=== PATIENT | female | born 1960 | race Caucasian/White ===

== ENCOUNTER → 2019-03-12 15:56 | Outpatient (CLI) | payer OTHER, SELFPAY ==
--- NOTE | 2019-03-12 16:02 | RAD_ITS ---
STUDY: X-RAY - PELVIS AND RIGHT HIP REASON FOR EXAM: Pain status post recent fall, right total hip arthroplasty 2013. TECHNIQUE: 2 views of the pelvis and hip. COMPARISON: None. FINDINGS: There is a small focus of heterotopic ossification lateral to the right total hip arthroplasty. There is enthesopathy of the right greater trochanter. Normal bilateral iliac wings, sacroiliac joints and visualized sacrum. Normal bilateral superior and inferior pubic rami. Normal pubic symphysis. Normal bilateral ischial tuberosities. There is a right total hip arthroplasty without evidence of periprosthetic fracture or dislocation. RAD/HIP, UNI W/ Pelvis 2-3 Views IMPRESSION: No demonstrated periprosthetic fracture or dislocation of the right total hip arthroplasty. Electronically Signed: Jasiel Alves MD at 10:07 EDT Tel , Service support ,
--- NOTE | 2019-03-12 16:02 | RAD_ITS ---
STUDY: X-RAY - RIGHT KNEE REASON FOR EXAM: Pain, status post recent fall. TECHNIQUE: 4 view(s) of the knee. COMPARISON: None. FINDINGS: Normal visualized distal femur. Normal visualized proximal tibia and fibula. Normal proximal tibiofibular articulation. There is mild joint space narrowing of the medial femorotibial compartment. Normal lateral femorotibial compartment. Normal patellofemoral articulation. The soft tissue structures are unremarkable. RAD/Knee 4 or More Views IMPRESSION: Mild arthrosis of the medial femorotibial compartment. Electronically Signed: Jasiel Alves MD at 9:46 EDT Tel , Service support ,
== END ==
PROVIDERS: Family Provider Family Medicine; PCP Family Medicine; Referring Provider Family Medicine; Visit Provider Family Medicine
DX: M25.551 Pain in right hip (principal); M79.604 Pain in right leg; M25.561 Pain in right knee
CPT/HCPCS: 73502; 73564

== ENCOUNTER → 2019-03-19 16:20 | Outpatient (CLI) | payer OTHER, SELFPAY ==
--- NOTE | 2019-03-19 16:26 | BD_ITS ---
STUDY: DUAL ENERGY X-RAY ABSORPTIOMETRY / DXA REASON FOR EXAM: Female, 58 years old. The patient is postmenopausal. Loss of height TECHNIQUE: Bone Mineral Density (BMD) measurements of lumbar spine and left hip were obtained. COMPARISON: None. FINDINGS: Lumbar Spine (L1-L4): g/cm2 (1.165) / T-score (-0.1) / Z-score (1.0) Findings are suggestive of normal bone density with a low fracture risk. Left Femur Total: g/cm2 (1.042) / T-score (0.3) / Z-score (1.1) Left Femoral Neck: g/cm2 (1.036) / T-score (0.0) / Z-score (1.2) BD/Dexa Bone Density Study IMPRESSION: The patient is considered normal as outlined below according to World Marv Organization (WHO) criteria with a low fracture risk. Reference Information: The T-score is the number of standard deviations above or below the standard which is normal for young adults at their peak bone mineral density. The World Health Organization (WHO) interprets the T-scores as follows: Above -1 Normal bone density Between -1 and -2.5 Osteopenia Equal to / or below -2.5 Osteoporosis As a practical clinical guideline, osteopenia may be graded as follows: Mild -1 through -1.5 Moderate -1.6 through -2.0 Severe -2.1 through -2.4 The Z-score is the number of standard deviations above or below age-matched controls. A Z-score of less than -1.5 would be considered abnormal. References: 1. NIH Osteoporosis and Related Bone Diseases http://www.osteo.org 2. International Society for Clinical Densitometry http://www.iscd.org 3. National Osteoporosis Foundation http://www.nof.org Electronically Signed: Rigo Sanchez, at 15:59 EDT , Service support ,
== END ==
PROVIDERS: Family Provider Family Medicine; PCP Family Medicine; Referring Provider Family Medicine; Visit Provider Family Medicine
DX: M85.80 Other specified disorders of bone density and structure, unspecified site (principal); Z85.3 Personal history of malignant neoplasm of breast; Z51.81 Encounter for therapeutic drug level monitoring
CPT/HCPCS: 77080

== ENCOUNTER → 2020-01-15 17:52 | Outpatient (CLI) | payer OTHER, SELFPAY | PROVIDERS: PCP Family Medicine; Referring Provider Family Medicine; Visit Provider Family Medicine | DX: Z20.828 Contact with and (suspected) exposure to other viral communicable diseases (principal); R50.9 Fever, unspecified | CPT/HCPCS: 87635; 94799; U0003 ==

== ENCOUNTER → 2021-12-26 | Outpatient (CLI) | payer OTHER, SELFPAY ==
--- NOTE | 2021-12-26 16:27 | BI_ITS ---
MAMMOGRAPHY - UNILATERAL SCREENING: LEFT BREAST REASON FOR EXAM: Female, 61 years old. Routine annual screening examination (unilateral). PERTINENT HISTORY: Personal history of breast cancer with previous right mastectomy. TECHNIQUE: Digital examination. Mediolateral oblique (MLO) and craniocaudad (CC) views of the breast were obtained, along with implant displaced views. CAD: CAD was performed on this study. COMPARISON: 12/16/2020 FINDINGS: Breast Composition: The breasts are almost entirely fatty. There are no dominant masses or suspicious calcifications. No other significant abnormalities are identified. Implant is intact and free of complication BI/SCREEN MAMM (CAD) W/SOL UNI L IMPRESSION: Negative screening mammogram. ASSESSMENT CATEGORY: BIRADS Category 2: Benign. A letter regarding these results will be sent to the patient by the facility within 30 days. FOLLOW UP RECOMMENDATION: Yearly follow up mammogram recommended. (A) [id number] Approximately 10% of breast cancers are not detected by mammography. A normal mammogram should not delay biopsy of a clinically suspicious abnormality. [id number] Electronically Signed: Kenny Brown MD at 11:53 EDT ,
== END | disposition home or self-care (01) ==
LOC: OPBI 12-27 07:01
PROVIDERS: PCP Family Medicine; Visit Provider Family Medicine
DX: Z12.31 Encounter for screening mammogram for malignant neoplasm of breast (principal); Z90.11 Acquired absence of right breast and nipple; Z85.3 Personal history of malignant neoplasm of breast
CPT/HCPCS: 77063; 77067

== ENCOUNTER → 2022-10-24 | Outpatient (CLI) | payer OTHER, SELFPAY ==
--- NOTE | 2022-10-24 14:40 | CT_ITS ---
STUDY: CT ABDOMEN AND PELVIS WITHOUT CONTRAST REASON FOR EXAM: Female, 61 years old. GENERALIZED ABD PAIN . LOW BILATERAL PELVIC PAIN ON AND OFF 4 TIMES A YEAR RADIATION DOSAGE (If Supplied By Facility): CTDIvol = ( 10.82 ) mGy, DLP = ( 510.86 ) mGycm TECHNIQUE: Transaxial images were obtained from the dome of the diaphragm to the symphysis pubis without oral contrast, and without intravenous contrast. Sagittal and coronal images were reconstructed. Individualized dose optimization techniques were used for this CT. COMPARISON: None. FINDINGS: Bilateral breast implants. The visualized lung bases are unremarkable. The visualized portions of the heart are within normal limits. Normal liver. There are multiple small gallstones. Normal spleen. Normal pancreas. Normal bilateral adrenal glands. Normal right kidney. Normal left kidney. There is a small hiatal hernia. Normal small intestine. There is diverticulosis, with thickening of the colon wall, and mild degree of pericolonic inflammation changes consistent with acute diverticulitis. The appendix is visualized and appears normal. Normal abdominal aorta. Normal inferior vena cava. Normal retroperitoneum. Normal urinary bladder. Normal abdominal wall. There are mild degenerative changes of the visualized lumbar spine. Prior right total hip replacement. CT/Abdomen/Pelvis without Cont IMPRESSION: Small gallstones. Findings suggestive of a mild degree of sigmoid diverticulitis. Electronically Signed: Rigo Sanchez MD at 15:07 EDT ,
== END | disposition home or self-care (01) ==
LOC: CT 14:39
PROVIDERS: PCP Family Medicine; Referring Provider Nurse Practitioner Family; Visit Provider Nurse Practitioner Family
DX: R10.84 Generalized abdominal pain (principal)
CPT/HCPCS: 74176

== ENCOUNTER → 2022-11-05 | Outpatient (CLI) | payer OTHER, SELFPAY ==
[2022-11-05 13:10] LABS: Free T3 3.2 pg/mL (2.18-3.98); T4 Free Direct 0.95 ng/dL (0.76-1.46); Thyroid Stim Hormone (TSH) 0.48 uIU/mL (0.358-3.74)
== END | disposition home or self-care (01) ==
LOC: BFHLAB 09:56
PROVIDERS: PCP Family Medicine; Referring Provider Family Medicine; Visit Provider Family Medicine
DX: E03.9 Hypothyroidism, unspecified (principal)
CPT/HCPCS: 36415; 84439; 84443; 84481

== ENCOUNTER → 2023-01-03 | Outpatient (CLI) | payer OTHER, SELFPAY ==
--- NOTE | 2023-01-03 15:55 | BI_ITS ---
MAMMOGRAPHY - UNILATERAL SCREENING: LEFT BREAST REASON FOR EXAM: Female, 62 years old. Routine annual screening examination (unilateral). PERTINENT HISTORY: Personal history of breast cancer. Prior right mastectomy. Mother with breast cancer. Grandmother with breast cancer. Aunt with breast cancer. TECHNIQUE: Digital unilateral breast sol (3D mammographic acquisition) in the CC and MLO projections. 2-D mediolateral oblique (MLO) and craniocaudad (CC) views of both breasts were obtained. CAD: Full Field Digital Mammography with Computer Added Detection was performed. COMPARISON: Comparison is made with prior study dated December 26, 2021. FINDINGS: Breast Composition: The breasts are almost entirely fatty. There are no dominant masses or suspicious calcifications. Stable appearance of left breast implant. No other significant abnormalities are identified. There has been no significant change since the prior study. BI/SCREEN MAMM (CAD) W/SOL UNI L IMPRESSION: Stable unilateral screening mammogram. Yearly follow-up mammogram recommended. (A) ASSESSMENT CATEGORY: BIRADS Category 2: Benign. A letter regarding these results will be sent to the patient by the facility within 30 days. Approximately 10% of breast cancers are not detected by mammography. A normal mammogram should not delay biopsy of a clinically suspicious abnormality. [id number] Electronically Signed: Rigo Sanchez MD at 8:14 EDT ,
== END | disposition home or self-care (01) ==
LOC: OPBI 15:54
PROVIDERS: PCP Family Medicine; Referring Provider Family Medicine; Visit Provider Family Medicine
DX: Z12.31 Encounter for screening mammogram for malignant neoplasm of breast (principal)
CPT/HCPCS: 77063; 77067

== ENCOUNTER 2023-03-29 14:08 | Day surgery (SDC) | payer OTHER, SELFPAY ==
[2023-03-29] MEDS: Lactated Ringers 1,000 ML 15 ML IV (14:48)
[2023-03-29 14:49] VITALS: BP 122/80; PULSE 99; RESP 18; TEMP 36.5; O2SAT 95; BMI 26.2
--- NOTE | 2023-03-29 15:18 | HP.PCM_ITS ---
History and Physical Date of Admission: 03/29/23 RONNELL HENRY, is a 62 F who presents to the office today for initial consult. PCP OV 10.24.22 with abdominal pain for a week. Last colonoscopy 10 years prior with reported normal results. Biochemical and imaging performed with concern for diverticulitis and treated with Levaquin.?Biochemical ?CBC, CMP, LFT?CT abd/pel 10.24.22?multiple small gallstones; small hiatal hernia; diverticulosis with changes of acute sigmoid diverticulitis.? OV 03.08.23 Pt here needing repeat colonoscopy. Reports she has episodes of diverticulitis that happen 1-2 times a year. Most recently treated in September. Does not have any other GI concerns. ROS Const Constitutional: No fatigue ENT ENT: No difficulty swallowing Gastro GI: No abdominal pain, belching, bloating, change in bowel habits, change in stool character, coffee ground emesis, constipation, cramping, diarrhea, heartburn, difficulty swallowing, feeling full early, excessive flatus, incontinent of stools, Vomiting blood/hematemesis, Blood in stool, loose stools, Black,tarry stools, nausea/dyspepsia, pain with swallowing, vomiting or other Musc Musculoskeletal: No joint pain Skin Skin: No yellowing of the eye or itchy eyes Psych Psychiatric: No anxiety and No depression Endo Endocrine: No fatigue Aller/Imm Allergy/Immunologic: No itchy eyes Diogo/Lymp Hematologic/Lymphatic: No easy bleeding or easy bruising Exam Const General: cooperative and comfortable Nutritional Appearance: average body habitus and well nourished [facility] Head: normal to inspection Ears: hearing grossly normal bilaterally Nose: external nose normal Face and sinus: normal facial exam Mouth: oral mucosae normal Throat: posterior oropharynx normal Eyes General: appearance normal, both eyes and all related structures Neck Neck: normal visual inspection Chest Chest palpation & inspection: normal inspection of the chest and normal palpation of entire chest wall Resp Effort & Inspection: normal respiratory effort Auscultation: Bilateral: Clear to Auscultation Cardio Palpation: normal PMI Rate: regular rate Rhythm: regular rhythm GI Inspection: normal to inspection Auscultation: normal bowel sounds Percussion: normal to percussion Palpation: no hepatosplenomegaly Skin General: no rashes or lesions noted Neuro General: patient alert Extrem General: normal to inspection Psych Affect: normal affect Quality Reporting Tobacco Screening ([facility] 138) Smoking Status: Never smoker Assessment and Plan Assessment and Plan (1) Screening for colon cancer: Status: Acute Plan: 62-year-old with past medical history of diverticulitis who had a normal colonoscopy approximately 13 years ago. She does not have any abdominal pain at this time. She does not have any nausea, vomiting or diarrhea. She did require antibiotics for mild diverticulitis. She has no constipation or any sequela from her diverticular event. She will undergo screening colonoscopy because been 13 years since she had her last one. She was explained alternatives, risk, benefits including outstanding bleeding, infection, sepsis, perforation, need for emergent surgery and . She will have an ASA of 2. I have examined the patient and the H&P has been reviewed. There are no clinical changes since date of exam.
[2023-03-29 16:45] VITALS: BP 122/80; BP 88/54; BP 90/54; PULSE 80; PULSE 85; RESP 16; TEMP 36.3; O2SAT 94; O2SAT 95
--- NOTE | 2023-03-29 16:46 | OP.CCLET_ITS ---
03/29/2023 Cailin Soto [address] [place] [address] Re : Colonoscopy procedure for Jennifer Harkins Dear Dr. Soto This procedure was performed on Wednesday, March 29, 2023. My impressions and recommendations are as follows: Impressions : - Stricture in the sigmoid colon. - Diverticulosis in the recto-sigmoid colon and in the sigmoid colon. - Rectal prolapse. - The examination was otherwise normal. - No specimens collected. Recommendations : - Discharge patient to home. - Resume previous diet. - Continue present medications. - Repeat colonoscopy in 10 years for screening purposes. My findings are described in the full procedure note, which is enclosed. If I can be of further assistance, please feel free to contact me at . Sincerely, Florentino Friend, 03/29/2023 4:46:33 PM This report has been signed electronically.
--- NOTE | 2023-03-29 16:46 | OP.COLON_ITS ---
Patient Name: Jennifer Harkins Procedure Date: 03/29/2023 4:06 PM Date of : 1960 Age: 62 Procedure: Colonoscopy Indications: Screening for colorectal malignant neoplasm Providers: DO Alejandra Perez MD: Cailin Soto Medicines: Monitored Anesthesia Care Patient Profile: This is a 62 year old female. Refer to note in patient chart for documentation of history and physical. Last Colonoscopy: more than 10 years ago. Complications: No immediate complications. Procedure: Pre-Anesthesia Assessment: - Prior to the procedure, a History and Physical was performed, and patient medications and allergies were reviewed. The risks and benefits of the procedure and the sedation options and risks were discussed with the patient. All questions were answered and informed consent was obtained. Patient identification and proposed procedure were verified by the physician. Mental Status Examination: normal. Prophylactic Antibiotics: The patient does not require prophylactic antibiotics. Prior Anticoagulants: The patient has taken no anticoagulant or antiplatelet agents. After reviewing the risks and benefits, the patient was deemed in satisfactory condition to undergo the procedure. The anesthesia plan was to use monitored anesthesia care (MAC). Immediately prior to administration of medications, the patient was re-assessed for adequacy to receive sedatives. The heart rate, respiratory rate, oxygen saturations, blood pressure, adequacy of pulmonary ventilation, and response to care were monitored throughout the procedure. The physical status of the patient was re-assessed after the procedure. After I obtained informed consent, the scope was passed under direct vision. Throughout the procedure, the patient's blood pressure, pulse, and oxygen saturations were monitored continuously. The colonoscope was introduced through the anus and advanced to the terminal ileum. The colonoscopy was performed without difficulty. The patient tolerated the procedure well. The quality of the bowel preparation was good. The terminal ileum, ileocecal valve, appendiceal orifice, and rectum were photographed. Scope In: 4:20:50 PM Scope Withdrawal Time 0 hours 5 minutes 34 seconds Scope Out: 4:41:04 PM Total Procedure Duration Time 0 hours 20 minutes 14 seconds Findings: The perianal and digital rectal examinations were normal. A benign-appearing, intrinsic severe stenosis measuring 3 cm (in length) x 7 mm (inner diameter) was found in the sigmoid colon and was traversed. Multiple small and large-mouthed diverticula were found in the recto-sigmoid colon and sigmoid colon. Mild rectal prolapse was present. Therefore retroflexion was not performed in the rectum. The exam was otherwise without abnormality. Impression: - Stricture in the sigmoid colon. - Diverticulosis in the recto-sigmoid colon and in the sigmoid colon. - Rectal prolapse. - The examination was otherwise normal. - No specimens collected. Recommendation: - Discharge patient to home. - Resume previous diet. - Continue present medications. - Repeat colonoscopy in 10 years for screening purposes. Procedure Code(s): --- Professional --- G0121, Colorectal cancer screening; colonoscopy on individual not meeting criteria for high risk CPT copyright 2021 [employer]. All rights reserved. The codes documented in this report are preliminary and upon crematorium operator review may be revised to meet current compliance requirements. Florentino Mayen DO 03/29/2023 4:46:33 PM This report has been signed electronically. Number of Addenda: 0 Note Initiated On: 03/29/2023 4:06 PM
[2023-03-29 16:50] VITALS: BP 122/80; BP 90/5; PULSE 85; RESP 16; O2SAT 94
[2023-03-29 16:55] VITALS: BP 122/80; BP 98/65; PULSE 80; RESP 16; O2SAT 94
[2023-03-29 17:00] VITALS: BP 104/63; BP 122/80; PULSE 78; RESP 16; TEMP 36.3; O2SAT 97
[2023-03-29 17:23] VITALS: BP 122/80
== END 2023-03-29 17:45 | disposition home or self-care (01) ==
LOC: EN 14:09 → AC 14:11
PROVIDERS: PCP Family Medicine; Referring Provider Family Medicine; Visit Provider Internal Medicine Gastroenterology
PROC: 0DJD8ZZ Inspection of Lower Intestinal Tract, Via Natural or Artificial Opening Endoscopic (ICD-10-PCS; CPT 45378; principal; 2023-03-29 15:25)
DX: Z12.11 Encounter for screening for malignant neoplasm of colon (principal); K56.609 Unspecified intestinal obstruction, unspecified as to partial versus complete obstruction; K57.30 Diverticulosis of large intestine without perforation or abscess without bleeding; K62.3 Rectal prolapse; Z79.82 Long term (current) use of aspirin; Z79.890 Hormone replacement therapy; E03.9 Hypothyroidism, unspecified
CPT/HCPCS: 45378; J7120

== ENCOUNTER → 2023-04-24 | Outpatient (CLI) | payer OTHER, SELFPAY ==
[2023-04-29 18:07] LABS: HPV APTIMA, High Risk Negative (Negative)
== END | disposition home or self-care (01) ==
LOC: LABSPEC 15:43
PROVIDERS: PCP Family Medicine; Referring Provider Nurse Practitioner Women's Health; Visit Provider Nurse Practitioner Women's Health
DX: Z12.4 Encounter for screening for malignant neoplasm of cervix (principal)
CPT/HCPCS: 87624; 88175; G0145

== ENCOUNTER → 2024-04-14 | Outpatient (CLI) | payer OTHER, SELFPAY ==
--- NOTE | 2024-04-14 16:13 | BI_ITS ---
MAMMOGRAPHY - UNILATERAL SCREENING: LEFT BREAST REASON FOR EXAM: Female, 63 years old. Routine annual screening examination (unilateral). PERTINENT HISTORY: Personal history of breast cancer. Prior right mastectomy. Right breast implant. Mother with breast cancer. Grandmother with breast cancer. Aunt with breast cancer. TECHNIQUE: Digital unilateral breast sol (3D mammographic acquisition) in the CC and MLO projections. 2-D mediolateral oblique (MLO) and craniocaudad (CC) views of both breasts were obtained. CAD: Full Field Digital Mammography with Computer Added Detection was performed. COMPARISON: Comparison is made with prior study January 03, 2023 and December 26, 2021. FINDINGS: Breast Composition: There are scattered areas of fibroglandular density. There are no dominant masses or suspicious calcifications. Stable appearance of the left breast implant. No other significant abnormalities are identified. There has been no significant change since the prior study. BI/SCREEN MAMM (CAD) W/SOL UNI L IMPRESSION: Stable unilateral screening mammogram. Yearly follow-up mammogram recommended. (A) ASSESSMENT CATEGORY: BIRADS Category 2: Benign. A letter regarding these results will be sent to the patient by the facility within 30 days. Approximately 10% of breast cancers are not detected by mammography. A normal mammogram should not delay biopsy of a clinically suspicious abnormality. [id number] Electronically Signed: Riog Sanchez MD at 8:29 EST ,
== END | disposition home or self-care (01) ==
LOC: OPBI 16:11
PROVIDERS: PCP Family Medicine; Referring Provider Family Medicine; Visit Provider Family Medicine
DX: Z12.31 Encounter for screening mammogram for malignant neoplasm of breast (principal)
CPT/HCPCS: 77063; 77067

== ENCOUNTER 2024-10-31 12:00 | Outpatient (CLI) | payer OTHER, SELFPAY ==
--- NOTE | 2024-10-31 | TOBX_PTH ---
PATIENT: RONNELL HENRY [facility] U#:[id number] AGE/SX: 63/F ROOM: RE10/31/[address]: Dr. Robin Vizcaino MD : 1960 BED: DIS: 10/31/2024 SPEC #: [id number] RECD: 10/31/24 12:09 STATUS: RHIANNON REParminder #: [id number] TATUM: 10/31/24 00:[address]: Robin Vizcaino DEPT: SURGICAL PATHOLOGY RECD BY: Manju Christian ENTERED: 11/02/24 07:17 SP TYPE: TONGUE BX SANJANA DR: Dr. Cailin Soto, DO Tissues: A - Tongue, NOS Procedures: Surgery Specimen Level IV HEADER OPERATION: Permanent pathology PRE-OP DIAGNOSIS: Left tongue neoplasm TISSUE SUBMITTED: A- Left tongue neoplasm MICROSCOPIC DIAGNOSIS A. Left tongue, excision: * Sessile polyp with a benign keratotic squamous epithelium, suggesting a lingual papillae MICROSCOPIC DESCRIPTION Slides are reviewed. GROSS DESCRIPTION A. Received in formalin labeled with the patient's name and date of . Designated as tongue is a 0.5 x 0.4 x 0.3 cm casey-white, firm and irregular portion of mucosa. The focally cauterized resection margin is inked black. Bisected and entirely submitted in [address] [facility] [place] [facility] 11/03/2024 CPT:34968
--- OUTSIDE RECORDS SUMMARY | 2024-10-31 12:07 | XMS RPT_ITS | CCD ---
Author Organization [facility] Care Team Providers Care Camp Advisor Name Role Phone Dr. Cailin Soto Primary Care Provider [phone] Charles, Dr. Simeon Referring Provider [phone] Friend, Dr. Good Attending Provider Friend, Dr. Good Other Provider [phone] Cailin Soto Primary Care Provider [phone] Charles, Dr. Simeon Referring Provider Friend, Dr. Good Attending Provider Friend, Dr. Good Other Provider Isaac KAYAKING INSTRUCTOR, GUILLE-Calderon Ragsdale Attending Provider Malys, Cailin Referring Unavailable Dossi, Kia Attending Unavailable Malys, Cailin Primary Care Unavailable Dossi, Kia Attending Unavailable Malys, Cailin Primary Care Unavailable Malys, Cailin Referring Unavailable Malys, Cailin Primary Care Unavailable Dossi, Kia Attending Unavailable Malys, Cailin Attending Unavailable Malys, Cailin Referring Unavailable Malys, Cailin Primary Care Unavailable Malys, Cailin Referring Unavailable Malys, Cailin Primary Care Unavailable Dossi, Kia Attending Unavailable Allergies Allergy Classification Reported Allergen(s) Allergy Type Date of Onset Reaction(s) Facility (4 sources) Meperidine Drug Allergy 11-07-2022 Rash [facility] (1 source) Meperidine Drug Allergy 01-01-2024 [facility] Repository Medications Current Medications Medication Drug Class(es) Dates Sig (Normalized) Sig (Original) anastrozole 1 mg oral tablet (2 sources) Aromatase Inhibitor Start: 10-31-2022 take 1 tablet by mouth once daily Anastrozole (Arimidex) 1 mg tablet Active 1 MG PO DAILY October 31, 2022 12:00am aspirin 81 mg delayed release oral tablet (4 sources) Platelet Aggregation Inhibitor, Nonsteroidal Anti-inflammatory Drug Start: 10-31-2022 take 1 tablet by mouth once daily Aspirin (Adult Aspirin Regimen) 81 mg tablet,delayed release (DR/EC) Active 81 MG PO DAILY October 30, 2022 11:00pm citalopram 20 mg oral tablet (4 sources) Serotonin Reuptake Inhibitor Start: 10-31-2022 take 1 tablet by mouth once daily Citalopram (Celexa) 20 mg tablet Active 20 MG PO DAILY October 30, 2022 11:00pm thyroid (jail) 15 mg oral tablet (4 sources) Start: 10-31-2022 take 1 tablet by mouth once daily Thyroid (Pork) ([place] Thyroid) 15 mg tablet Active 15 MG PO DAILY October 30, 2022 11:00pm Problems Active Problems Problem Classification Problem Date Documented Date Episodic/Chronic Cancer of breast (2 sources) History of malignant neoplasm of breast; Translations: [Personal history of malignant neoplasm of breast] 04-24-2023 Episodic Other screening for suspected conditions (not mental disorders or infectious disease) (5 sources) Patient encounter status; Translations: [Encounter for screening for malignant neoplasm of colon] Onset: 05-11-2024 03-08-2023 Episodic Spondylosis; intervertebral disc disorders; other back problems (1 source) Other intervertebral disc degeneration, lumbosacral region; Translations: [Other intervertebral disc degeneration, lumbosacral region] Onset: 01-08-2024 Chronic Unclassified (1 source) Low back pain, unspecified; Translations: [Low back pain, unspecified] Onset: 01-08-2024 Past or Other Problems Problem Classification Problem Date Documented Da te Episodic/Chronic Other bone disease and musculoskeletal deformities (1 source) Segmental and somatic dysfunction of lumbar region; Translations: [Segmental and somatic dysfunction of lumbar region] Onset: 01-08-2024 Episodic Other bone disease and musculoskeletal deformities (1 source) Segmental and somatic dysfunction of pelvic region; Translations: [Segmental and somatic dysfunction of pelvic region] Onset: 01-08-2024 Episodic Spondylosis; intervertebral disc disorders; other back problems (1 source) Dorsalgia, unspecified; Translations: [Dorsalgia, unspecified] Onset: 12-10-2023 Episodic Results Test Name Value Interpretation Reference Range Facility SCREEN MAMM (CAD) W/SOL UNI David 04-14-2024 SCREEN MAMM (CAD) W/SOL UNI L [facility] Services [address] [place] [address] SCREEN MAMM (CAD) W/SOL UNI L MR#: [id number] Acct: [id number] Name: RONNELL HENRY Rep #: [id number] : 1960 F 63 From: Rigo alvarenga MD PCP: Dr. Cailin Soto DO Status: [facility] Study: SCREEN MAMM (CAD) W/SOL UNI L Date of Exam: 06/14/23 Exam# [id number] Ordering Dr: Cailin Soto DO [id number] MAMMOGRAPHY - UNILATERAL SCREENING: LEFT BREAST REASON FOR EXAM: Female, 63 years old. Routine annual screening examination (unilateral). PERTINENT HISTORY: Personal history of breast cancer. Prior right mastectomy. Right breast implant. Mother with breast cancer. Grandmother with breast cancer. Aunt with breast cancer. TECHNIQUE: Digital unilateral breast sol (3D mammographic acquisition) in the CC and MLO projections. 2-D mediolateral oblique (MLO) and craniocaudad (CC) views of both breasts were obtained. CAD: Full Field Digital Mammography with Computer Added Detection was performed. COMPARISON: Comparison is made with prior study January 03, 2023 and December 26, 2021. FINDINGS: Breast Composition: There are scattered areas of fibroglandular density. There are no dominant masses or suspicious calcifications. Stable appearance of the left breast implant. No other significant abnormalities are identified. There has been no significant change since the prior study. BI/SCREEN MAMM (CAD) W/SOL UNI L IMPRESSION: Stable unilateral screening mammogram. Yearly follow-up mammogram recommended. (A) ASSESSMENT CATEGORY: BIRADS Category 2: Benign. A letter regarding these results will be sent to the patient by the facility within 30 days. Approximately 10% of breast cancers are not detected by mammography. A normal mammogram should not delay biopsy of a clinically suspicious abnormality. [id number] Electronically Signed: Rigo Sanchez MD at 8:29 EST Reading Location ID and State: [address] [place] [address] , Service support , CC: Dr. 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 Normal [facility] Chiropractic Reporton 2023 Chiropractic Report [facility] [place] [address] OFFICE VISIT Date of Service: 01/01/24 MR#: [id number] Acct: [id number] Name: RONNELL HENRY Rep #: [id number] : 1960 Provider: YOSVANY Rodriguez Age/Sex: 63/F Location: [facility] Status: Signed Intake Vital Signs 12/02/23 15:17 Height 5 ft 7 in Weight: 163 lb 7 oz BMI 25.6 Blood Pressure Location Lt brachial Position Sitting Intake Visit Reasons: Back pain Chief Complaint: Back pain Allergies meperidine (From Demerol) Allergy (Intermediate, Verified 01/01/24 11:10) Rash Medications ???Medication ???Instructions ???Recorded ???Confirmed ???Type aspirin 81 mg tablet,delayed 81 mg PO DAILY 10/31/22 01/01/24 History release (Adult Aspirin Regimen) citalopram 20 mg tablet (Celexa) 20 mg PO DAILY 10/31/22 01/01/24 History thyroid (pork) 15 mg tablet 15 mg PO DAILY 10/31/22 01/01/24 History ([place] Thyroid) [facility] Medical History Osteoarthritis Post-menopausal Cancer Thyroid disease Non-smoker Breast cancer, right Abdominal pain Acute diverticulitis Surgical History S/P cataract surgery History of wisdom tooth extraction History of tonsillectomy History of hip replacement H/O right mastectomy Family History Mother Breast cancer Grandmother Breast cancer paternal Aunt Breast cancer paternal Father Cancer Lung Social History household members: spouse housing: house number of children: 3 current occupational status: employed current occupation: [employer] Smoking Status: Never smoker alcohol intake: current alcohol intake frequency: holidays/special occasions only substance use type: does not use seatbelt use: always do you feel safe at home: Yes additional social history: -[employer]ika[employer] HPI Back pain Chief Complaint: low back pain Visit Number: 2 Details: Ronnell Henry a 62 year old female presents for follow-up on low back pain. She states today that her last adjustment was very helpful and returns today with minimal pain. She hasn't had her back lock up since last visit. She denies numbness, tingling or radicular symptoms. She has tried heat, ice, stretching and muscle relaxers with no relief. She has seen a chiropractor in the past and reports this was helpful. Onset: 10/25/21 Location: low back Duration: intermittent Aggravating or associated factors: weeding, working in flower beds, bending Relieving factors: chiro Treatment: heat, ice, muscle relaxers Pain Quality: aching and dull Exam Musc General: Yes normal posture, normal gait and joint tenderness; No muscle weakness or decreased range of motion Thoracic/Lumber: Yes thoracic and lumbar spine normal to inspection, Yes paraspinal tenderness (improving) bilaterally in the upper lumbar, in the mid lumbar and in the lower lumbar, No thoraco- lumbar ROM limited, Yes thoraco-lumbar spasm on the right greater than left (lumbar paraspinal L1- L5) and on the left greater than right (glute medius) and Yes misalignment L1, L2, L3, L4, L5, RIL and LIL Sacroiliac joints: on the right tender to palpation Neuro General: patient alert, patient awake, patient oriented x3, normal light touch, pain and propioception and no focal motor deficits Cranial Nerves: CN's II-XI intact bilaterally Cognition: normal cognition Speech: speech normal Gait: normal gait Motor: muscle tone normal throughout Sensory Exam: no sensory deficits noted Ortho Test CERVICAL THORACIC LUMBAR Kemps: Negative Valsalvas: Negative (+when pt is acute) SLR: Negative Iliac Compression: Negative Office Procedures Procedures - Chiropractic Procedures Manipulation: Lumbar L3 and Pelvis LIL Manipulation: 1-2 regions Patient Response: positive Assessment and Plan Assessment and Plan (1) Back pain: Status: Acute Qualifiers: Back pain laterality: bilateral Back pain location: low back pain Chronicity: acute Sciatica presence: without sciatica Qualified Code(s): M54.50 - Low back pain, unspecified (2) Segmental and somatic dysfunction of lumbar region: Status: Acute (3) Segmental and somatic dysfunction of pelvic region: Status: Acute (4) DDD (degenerative disc disease), lumbosacral: Status: Chronic Comment: mild L3-S1 Orders: Orders Chiropractic Treatments 01/01/24 M51.37 - Other intervertebral disc degeneration, lumbosacral region, M99.03 - Segmental and somatic dysfunction of lumbar region, M99.05 - Segmental and somatic dysfunction of pelvic region Plan Patient was treated without (more content not included)... Normal [facility] Chiropractic Reporton 2023 Chiropractic Report [facility] [address] [place] [address] OFFICE VISIT Date of Service: 12/02/23 MR#: [id number] Acct: [id number] Name: RONNELL HENRY Rep #: [id number] : 1960 Provider: YOSVANY Rodriguez Age/Sex: 62/F [place] [facility] [place]: Signed Intake Vital Signs 04/24/23 15:00 12/02/23 15:17 Height 5 ft 7 in 5 ft 7 in Weight: 163 lb 7 oz BMI 25.6 Blood Pressure Location Lt brachial Position Sitting Intake Visit Reasons: est care Chief Complaint: Back pain Is patient in pain?: No Allergies meperidine (From Demerol) Allergy (Intermediate, Verified 12/02/23 15:18) Rash Medications ???Medication ???Instructions ???Recorded ???Confirmed ???Type aspirin 81 mg tablet,delayed 81 mg PO DAILY 10/31/22 12/02/23 History release (Adult Aspirin Regimen) citalopram 20 mg tablet (Celexa) 20 mg PO DAILY 10/31/22 12/02/23 History thyroid (pork) 15 mg tablet 15 mg PO DAILY 10/31/22 12/02/23 History ([place] Thyroid) [facility] Medical History (Updated 12/02/23 @ 16:[address] Kia Amaya, YOSVANY) Osteoarthritis Post-menopausal Cancer Thyroid disease Non-smoker Breast cancer, right Abdominal pain Acute diverticulitis Surgical History S/P cataract surgery History of wisdom tooth extraction History of tonsillectomy History of hip replacement H/O right mastectomy Family History Mother Breast cancer Grandmother Breast cancer paternal Aunt Breast cancer paternal Father Cancer Lung Social History household members: spouse housing: house number of children: 3 current occupational status: employed current occupation: [employer] Smoking Status: Never smoker alcohol intake: current alcohol intake frequency: holidays/special occasions only substance use type: does not use seatbelt use: always do you feel safe at home: Yes additional social history: -Carla Palomares of [employer] [employer] Chief Complaint: Back pain Visit Number: 1 Details: Ronnell Henry a 62 year old female presents for initial evaluation of back pain. She states that a few times per year she has episodes where her low back locks up. When she has these episodes she is unable to bend and has a difficult time walking or moving. Before these episodes she can be doing yard work or she moves and bends the wrong way and it happens. The most recent episode was over a week ago when she was weeding the flower beds. She felt a spasms start in her low back then it locked up. She states the pain is equal bilaterally when this happens. She denies numbness, tingling or radicular symptoms. The pain is 10/10 with these episodes. She had a right hip replacement but denies any pain in her hips. She has tried heat, ice, stretching and muscle relaxers with no relief. She has seen a chiropractor in the past and reports this was helpful. Onset: 10/25/21 Location: Low back Duration: intermittent Aggravating or associated factors: weeding, working in flower beds, bending Treatment: heat, ice, muscle relaxers Pain Quality: aching and dull Exam Musc General: Yes normal posture, normal gait and joint tenderness; No muscle weakness or decreased range of motion Thoracic/Lumber: Yes thoracic and lumbar spine normal to inspection, Yes Lasegue's sign negative, Yes straight leg raise negative bilaterally, No pain with thoraco-lumbar ROM, Yes paraspinal tenderness bilaterally in the upper lumbar, in the mid lumbar and in the lower lumbar, No thoraco- lumbar ROM limited, Yes thoraco-lumbar spasm on the right greater than left (lumbar paraspinal L1- L5) and on the left greater than right (glute medius) and Yes misalignment L1, L2, L3, L4, L5, RIL and LIL Sacroiliac joints: on the right tender to palpation Neuro General: patient alert, patient awake, patient oriented x3, normal light touch, pain and propioception and no focal motor deficits Cranial Nerves: CN's II-XI intact bilaterally Cognition: normal cognition Speech: speech normal Gait: normal gait Motor: muscle tone normal throughout Sensory Exam: no sensory deficits noted Ortho Test CERVICAL THORACIC LUMBAR Kemps: Negative Valsalvas: Negative (+when pt is acute) SLR: Negative Iliac Compression: Negative Office Procedures Procedures - Chiropractic Procedures Manipulation: Lumbar L3 and Pelvis LIL Manipulation: 1-2 regions Traction, Mechanical: Yes Patient Response: positive Assessment and Plan Assessment and Plan (1) Back pain: Status: Acute Qualifiers: Back pain laterality: bilateral Back pain location: low back pain Chronicity: acute Sciatica presence: without (more content not included)... Normal [facility] Radiology Reporton 4 Radiology Report [place] [address] [place] [address] 12/02/23 1557 MR#: [id number] Acct: [id number] Name: RONNELL HENRY Rep #: [id number] : 1960 62 From: Kia Amaya D.C. PCP: Dr. Cailin Soto, DO Status:DEP AMB [place] [facility] [place] Impression Impression: Patients Name: RONNELL HENRY : 1960 Views Submitted: a routine lumbosacral series was accomplished on 12/02/23 at [facility]. The lumbar series reveals in the AP view a mild left rotatory curvature of the lumbar spine, with right spinous process rotation from T11 to S1. There is a 12.4mm leg length inequality on the right There is anterior rotation of the left manfred on sacrum. Sacrum is inferior on the right. It appears that there is a right kidney stone. Evidence of R hip replacement. The lateral lumbar view demonstrates a normal lordotic lumbar spine. The disc spaces are mildly reduced from L2-S1. Oblique views are normal, no indication of fracture or instability. IMPRESSION: 1. Mild lumbar DDD. 2. Right kidney stone. Dictated by Performing Provider: Kia Amaya Coding Level of Care Code Spine Lumbarsacral 4 views 12/03/23 0822 Date Kia Amaya D.C. Signed Normal [facility] Cervical or vagninal specime n microscopic examination by cytology stain (reported asOrdered By: Melyssa Gray on 04-24-2023 Cytology report Cyto stain Doc (Cvx/Vag) Comment . [facility] Comment on above: The Pap smear is a s creening test designed to aid in thedetection of premalignant and malignant conditions of theuterine cervix. It is not a diagnostic procedure andshould not be used as the sole means of detecting cervicalcancer. Both false-positive and false-negative reports dooccur. Detection in cervical specim en of any of human papilloma virus (HPV) 16, 18, 31, 33,Ordered By: Melyssa Gray on 04-24-2023 HPV 16+18+31+33+35+39+45+5 1+52+56+58+59+66+68 DNA Probe+sig amp Ql (Cvx) Negative Negative [facility] Comment on above: This nucleic acid am plification test detects fourteen high- risk HPV types (16,18,31,33,35,39,45,51,52,56,58,59,66,68)without differentiation. Laboratory - CytologyOrdered By: Melyssa Gray on 04-24-2023 Gas Operations Superintendent Cyto stain Nom (Cvx/Vag) [ID] Comment . [facility] Comment on above: Luzmaria Grant, Cyto technologist (ASCP) Laboratory - Miscellaneous t estsOrdered By: Melyssa Gray on 04-24-2023 Service comment (Unsp spec) [Interp] Comment . [facility] Comment on above: This liquid based Th inPrep(R) pap test was screened withthe use of an image guided system. Service comment (Unsp spec) [Interp] . . [facility] Liquid-based cerv Pap + CT/G C by SARAH w reflex to high-risk HPV for ASCUSOrdered By: Melyssa Gray on 04-24-2023 Cytology report Cyto stain.thin prep Doc (Cvx/Vag) Comment . [facility] Comment on above: Criteria not met, HP V Genotype not performed.Performed at: [facility] [id number] Director: Taniya Nance MD, Phone: [phone] at: = - [facility] [id number] Director: Taniya Nance MD, Phone: [phone] No Panel InformationOrdered By: Melyssa Gray on 04-24-2023 Pathology report final diagnosis Narrative Comment . [facility] Comment on above: NEGATIVE FOR INTRAEP ITHELIAL LESION OR MALIGNANCY. Laboratory - Chemistry and C hemistry - challengeOrdered By: Dr. Soto on 11-05-2022 Free T4 [Mass/Vol] 0.95 ng/dL 0.76-1.46 [facility] No Panel InformationOrdered By: Dr. Soto on 11-05-2022 Free Triiodothyronine (T3) pg/dL 3.2 pg/mL 2.18-3.98 [facility] Thyroid Stimulating Hormone (TSH) 0.48 uIU/mL 0.358-3.74 [facility] Clinic Note - Heme Onc Sched cathyamanda 08-30-2021 Clinic Note - Heme Onc Scheduling Retrieve Patient Instructions: Patient Instructions: Patient Instructions: RetrievePatient Instructions Instructions It was a pleasure seeing you today. Thank you for allowing me to take part in your care. Please contact our office if you have any questions or concerns going forward. End of Visit Documentation: Clinic Location/Phone Number: Clinic Location/Phone Number: [facility] End Of Visit MU Report Item: Visit Summary given or mailed to patientyes Mailed to patient Electronic Signatures: Leia Hawkins (SEC) (Signed 30-Aug-2021 11:26) Authored: Retrieve Patient Instructions, End of Visit Documentation Last Updated: 30-Aug-2021 11:26 by Leia Hawkisn (SEC) [facility] Clinic Note - Heme Oncon Clinic Note - Heme Onc Patient Visit Information: Visit Type: Follow Up Visit Cancer History: Breast Cancer AJCC Edition: 7th, Diagnosis Date: 12-Jan-2009, Stage IIB, T2 N1 M0 Treatment History: 1. In December 2008, right invasive ductal carcinoma, Chamberlain-Rodriguez grade 3, ER and SC both positive at 95%, and HER-2 negative by FISH. Tumor measured 2 cm with 1 of 4 sentinel lymph nodes positive for disease. She was treated with right mastectomy and implant reconstruction, on February 2009. Stage II (T1c N1A M0). 2. Dose-dense Adriamycin and Cytoxan initiated in April 2009 followed by dose-dense Taxol completed on August 03, 2009. 3. Right silicone implant reconstruction completed 08/[address] Christensen. Left breast silicone implant placed around 2002 to 2003. 4. She joined the SO307 randomized clinical trial of bisphosphonate in June 2009, and was randomized to receive Zometa with the first treatment given June 29, 2009, which was complicated by fever. No further fever reactions thereafter. 5. Radiation therapy to the right breast and axilla completed on November 09, 2009. 6. Tamoxifen initiated on 2009. The patient was switched from tamoxifen to Arimidex on July 17, 2011. Of note, the patient had not had her periods prior to the start of her chemotherapy and was found to be in menopause via laboratory testing. 6. Genetic testing for BRCA1 and BRCA2 were negative. History of Present Illness: ID Statement: RONNELL HENRY is a 60 year old Female Chief Complaint: Urgent Visit Interval History: Anne presents for urgent visit. She called last week as she was having pain in her right reconstructed breast and was concerned as this was new. She states that the breast pain has bothered her for 2 weeks though yesterday and today it is much improved. Anne denies any recent illness, no fever, nasal congestion, or body aches. She does feel that the reconstructed breast feels tight as well. Review of Systems: Review of Systems: 13 point review of system completed - see HPI System ReviewAll other systems have been reviewed and are negative for complaint. Allergies and Intolerances: Allergies: Demerol HCl: Drug, Anaphylaxis, Active Outpatient Medication Profile: * Patient Currently Takes Medications as of 29-Aug-2021 10:02 documented in Structured Notes CITALOPRAM 20 MG ORAL TABLET: Last Dose Taken: , TAKE TABLET BY MOUTH ALTERNATE 1 TABLET EVERY OTHER DAY (20MG) WITH 2 TABLETS EVERY OTHER DAY (40MG), Start Date: 17-Aug-2016 Vitamin D3 2000 intl units oral capsule: Last Dose Taken: , 1 cap(s) orally once a day Aspir 81 81 mg oral delayed release tablet: Last Dose Taken: , 1 tab(s) orally once a day calcium carbonate 600 mg oral tablet: Last Dose Taken: , 2 tab(s) orally once a day [place] Thyroid 30 mg oral tablet: Last Dose Taken: Medical History: Screening mammogram, encounter for: ICD-10: Z12.31, Status: Active Aromatase inhibitor use: ICD-10: Z79.811, Status: Active History of malignant neoplasm of breast: ICD-10: Z85.3, Status: Active Breast cancer: ICD-10: C50.919, Status: Active Family History: No Family History items are recorded in the problem list. Social History: Social Substance History: Smoking Statusnever smoker Alcohol Useunknown Drug Usedenies Performance: ECOG Performance Status: 0 Fully Active Vitals and Measurements: Vitals: Temp: 36.5 HR: 71 RR: 18 BP: 113/71 SPO2%: NA Measurements: HT(cm): 169.2 WT(kg): 80.3 BSA: 1.94 BMI: 28 Physical Exam: Constitutional: Well developed, alert/oriented x3, no distress, cooperative Eyes: clear sclera ENMT: mucous membranes moist, no apparent lesions Head/Neck: Neck supple, no bruits Respiratory/Thorax: Patent airways, normal breath sounds with good chest expansion Cardiovascular: Regular rate and rhythm, no murmurs, 2+ equal pulses of the extremities, Gastrointestinal: Nondistended, soft, non-tender, no masses palpable, no organomegaly Musculoskeletal: ROM intact, no joint swelling, normal strength Extremities: normal extremities, no edema, cyanosis, contusions or wounds Neurological: alert and oriented x3, normal strength Breast: Left mastectomy with silicone implant reconstruction is without masses, nodules, skin changes. There is slight contraction of the reconstructed breast. Right breast without masses, nodules, skin changes, discharge, + for implant augmentation. Lymphatic: No significant lymphadenopathy Psychological: Appropriate mood and behavior Skin: Warm and dry, no lesions, no rashes Cancer: Breast Cancer Screeningdone Breast Cancer Screening Methodmammography Mastectomy Doneright Breast Cancer Typeestrogen positive, progesterone positive Lab Results: Results CBC date/time WBC HGB HCT PLT Neut 01-Sep-2014 16:00 5.4 12.5 37.9 227 2.90 BMP date/time NA K CL CO2 BUN CREAT 01-Sep-2014 16:00 141 (more content not included)... Normal [facility] Clinic Note - Intakeon 08-29 Clinic Note - Intake Patient Visit Information: Visit TypeFollow Up Visit Source of Informationpatient Vital Signs: Temp (degrees C)36.5 degrees C Heart Rate (beats/min)71 beats per minute Respiration (breaths/min)18 breath per minute BP Systolic (mm Hg)113 mmHg BP Diastolic (mm Hg)71 mmHg BP Mean (mm Hg)85 mmHg Height in cm169.2 centimeter(s) Weight in kg80.3 kilogram(s) BMI (kg/m2)28 kg/M2 BSA (m2)1.94 M2 Last 3 Weights & HeightsDate: Weight/Scale Type:Height: 16-Dec-2020 14:5079 kg / standing zlypg129.1 cm Pain Screening: Patient States Painno (0) Web Press Operator Helper Offset for intimate exam offered to patient: Patient hasdeclined Allergies: Demerol HCl: Drug, Anaphylaxis, Active Outpatient Medication Profile: * Patient Currently Takes Medications as of 29-Aug-2021 10:02 documented in Structured Notes CITALOPRAM 20 MG ORAL TABLET: Last Dose Taken: , TAKE TABLET BY MOUTH ALTERNATE 1 TABLET EVERY OTHER DAY (20MG) WITH 2 TABLETS EVERY OTHER DAY (40MG), Start Date: 17-Aug-2016 Vitamin D3 2000 intl units oral capsule: Last Dose Taken: , 1 cap(s) orally once a day Aspir 81 81 mg oral delayed release tablet: Last Dose Taken: , 1 tab(s) orally once a day calcium carbonate 600 mg oral tablet: Last Dose Taken: , 2 tab(s) orally once a day [place] Thyroid 30 mg oral tablet: Last Dose Taken: Notification: NotificationsAnnual Screens Due Dates Advanced Directives: Dec 16, 2021 Has Living Will: did not bring Has POA: did not bring Family Violence: Dec 16, 2021 Depression (Due every 6 months for ONC only; all others use Annual date): Jun 14, 2021 Substance Use - Alcohol: Dec 16, 2021 Substance Use - Drugs: Dec 16, 2021 Nutrition: Dec 16, 2021 Learning: Due Now Travel History: COVID-19 Screening Completedno exposure or symptoms Travel or ExposureNO travel to International locations in the past 30 days Falls: Have you fallen in the last 6 monthsno Spiritual/Procedural: Spiritual/cultural/rel igious practices important for us to knowno Electronic Signatures: Nicole Sutherland (DTR SECT) (Signed 29-Aug-2021 10:06) Authored: Patient Visit Information, Vital Signs, Web Press Operator Helper Offset, Allergies, Outpatient Medication Profile, Notification, Travel History, Falls, Spiritual/Procedural Last Updated: 29-Aug-2021 10:06 by Nicole Sutherland (DTR SECT) Normal [facility] Clinic Note - Heme Onc-Follo w Up Visiton 12-16-2020 Clinic Note - Heme Onc-Follow Up Visit Patient Visit Information: Visit Type: Follow Up Visit Cancer History: Breast Cancer AJCC Edition: 7th, Diagnosis Date: 12-Jan-2009, Stage IIB, T2 N1 M0 Treatment History: 1. In December 2008, right invasive ductal carcinoma, Chamberlain-Rodriguez grade 3, ER and SC both positive at 95%, and HER-2 negative by FISH. Tumor measured 2 cm with 1 of 4 sentinel lymph nodes positive for disease. She was treated with right mastectomy and implant reconstruction, on February 2009. Stage II (T1c N1A M0). 2. Dose-dense Adriamycin and Cytoxan initiated in April 2009 followed by dose-dense Taxol completed on August 03, 2009. 3. Right silicone implant reconstruction completed 08/[address] Christensen. Left breast silicone implant placed around 2002 to 2003. 4. She joined the SO307 randomized clinical trial of bisphosphonate in June 2009, and was randomized to receive Zometa with the first treatment given June 29, 2009, which was complicated by fever. No further fever reactions thereafter. 5. Radiation therapy to the right breast and axilla completed on November 09, 2009. 6. Tamoxifen initiated on 2009. The patient was switched from tamoxifen to Arimidex on July 17, 2011. Of note, the patient had not had her periods prior to the start of her chemotherapy and was found to be in menopause via laboratory testing. 6. Genetic testing for BRCA1 and BRCA2 were negative. History of Present Illness: ID Statement: RONNELL HENRY is a 60 year old Female Chief Complaint: Routine visit Interval History: Anne presents for routine visit. 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 Covid was very challenging for her and her co-workers as they were the ones who received and stored a lot of the PPE. Anne is walking for exercise. She recently saw dermatology with negative findings. Anne rates her energy level as 8/10 and a distress score of 2/10. Anne denies any unusual headaches, vision changes, falling, shortness of breath, problem swallowing, pain in the chest, muscle or bone pain, diarrhea, constipation, unusual vaginal discharge or dryness, changes in her chest/breast area, or new or unusual moles. Review of Systems: Review of Systems: 13 point review of system completed - see HPI System ReviewAll other systems have been reviewed and are negative for complaint. Allergies and Intolerances: Allergies: Demerol HCl: Drug, Anaphylaxis, Active Outpatient Medication Profile: * Patient Currently Takes Medications as of 16-Dec-2020 14:53 documented in Structured Notes CITALOPRAM 20 MG ORAL TABLET: Last Dose Taken: , TAKE TABLET BY MOUTH ALTERNATE 1 TABLET EVERY OTHER DAY (20MG) WITH 2 TABLETS EVERY OTHER DAY (40MG), Start Date: 17-Aug-2016 Vitamin D3 2000 intl units oral capsule: Last Dose Taken: , 1 cap(s) orally once a day Aspir 81 81 mg oral delayed release tablet: Last Dose Taken: , 1 tab(s) orally once a day calcium carbonate 600 mg oral tablet: Last Dose Taken: , 2 tab(s) orally once a day [place] Thyroid 30 mg oral tablet: Last Dose Taken: Medical History: Screening mammogram, encounter for: ICD-10: Z12.31, Status: Active Aromatase inhibitor use: ICD-10: Z79.811, Status: Active History of malignant neoplasm of breast: ICD-10: Z85.3, Status: Active Breast cancer: ICD-10: C50.919, Status: Active Family History: No Family History items are recorded in the problem list. Social History: Social Substance History: Smoking Statusnever smoker Alcohol Useunknown Drug Usedenies Performance: ECOG Performance Status: 0 Fully Active Vitals and Measurements: Vitals: Temp: 36 HR: 67 RR: NA BP: 107/73 SPO2%: NA Measurements: HT(cm): 170 WT(kg): 78 BSA: 1.91 BMI: 26.9 Physical Exam: Constitutional: Well developed, alert/oriented x3, no distress, cooperative Eyes: clear sclera ENMT: mucous membranes moist, no apparent lesions Head/Neck: Neck supple, no bruits Respiratory/Thorax: Patent airways, normal breath sounds with good chest expansion Cardiovascular: Regular rate and rhythm, no murmurs, 2+ equal pulses of the extremities, Gastrointestinal: Nondistended, soft, non-tender, no masses palpable, no organomegaly Musculoskeletal: ROM intact, no joint swelling, normal strength Extremities: normal extremities, no edema, cyanosis, contusions or wounds Neurological: alert and oriented x3, normal strength Breast: Left mastectomy with silicone implant reconstruction without masses, nodules, skin changes. Right breast without masses, nodules, skin changes, discharge. Lymphatic: No significant lymphadenopathy Psychological: Appropriate mood and behavior Skin: Warm and dry, no lesions, no rashes Lab Results: Results CBC date/time WBC HGB HCT PLT Neut 01-Sep-2014 16:00 5.4 12.5 37.9 227 2.90 BMP date/time NA K CL CO2 BUN CREAT 01-Sep-2014 16:00 141 4.0 (more content not included)... Normal [facility] Clinic Note - Intakeon 12-16 Clinic Note - Intake Patient Visit Information: Visit TypeFollow Up Visit Source of Informationpatient Vital Signs: Temp (degrees C)36.7 degrees C Temperatureskin Heart Rate (beats/min)76 beats per minute BP Systolic (mm Hg)108 mmHg BP Diastolic (mm Hg)75 mmHg BP Mean (mm Hg)86 mmHg Height in cm170.1 centimeter(s) Height Methodstated Heightstanding Weight in kg79 kilogram(s) Weight Methodstanding scale BMI (kg/m2)27.3 kg/M2 BSA (m2)1.93 M2 Pain Screening: Patient States Painno (0) Web Press Operator Helper Offset for intimate exam offered to patient: Patient hasdeclined Allergies: Demerol HCl: Drug, Anaphylaxis, Active Outpatient Medication Profile: * Patient Currently Takes Medications as of 16-Dec-2020 14:53 documented in Structured Notes CITALOPRAM 20 MG ORAL TABLET: Last Dose Taken: , TAKE TABLET BY MOUTH ALTERNATE 1 TABLET EVERY OTHER DAY (20MG) WITH 2 TABLETS EVERY OTHER DAY (40MG), Start Date: 17-Aug-2016 Vitamin D3 2000 intl units oral capsule: Last Dose Taken: , 1 cap(s) orally once a day Aspir 81 81 mg oral delayed release tablet: Last Dose Taken: , 1 tab(s) orally once a day calcium carbonate 600 mg oral tablet: Last Dose Taken: , 2 tab(s) orally once a day [place] Thyroid 30 mg oral tablet: Last Dose Taken: Notification: NotificationsAll annual screens currently due. Travel History: COVID-19 Screening Completedno exposure or symptoms Travel or ExposureNO travel to International locations in the past 30 days Falls: Have you fallen in the last 6 monthsno Do you have a fear of fallingno Do you feel you need assistanceno Is the patient using an assistive deviceno Spiritual/Procedural: Spiritual/cultural/rel igious practices important for us to knowno Adv Dir: Living [facility] POAyes Living Will Formsdid not bring Healthcare POA Formsdid not bring Violence: Are you or have you been threatened or abused physically,emotionally or sexually abused by anyoneno Do you feel UNSAFE going back to the place you are livingno Depression: Past 2 wks: [place] down, depressed or hopelessno Past 2 wks: [place] little interest/pleasure doing thingsno Any Thoughts of Harming Othersno In the Past Month: Have you wished you were or could go to sleep and not wake upno In the Past Month: Have you had any actual thoughts of killing yourselfno Substance: How many times in the past year have you had 4 or more drinks within 24 hours0 How many times in past year have you used recreational or prescription drugs for non-medical reasons0 Nutrition/Learning: In the past month, was there any day when you or anyone in your family went hungry because you didn't have enough foodno Electronic Signatures: Peg Sutherland (PCNA) (Signed 16-Dec-2020 14:55) Authored: Patient Visit Information, Vital Signs, Web Press Operator Helper Offset, Allergies, Outpatient Medication Profile, Notification, Travel History, Falls, Spiritual/Procedural, Adv Dir, Violence, Depression, Substance, Nutrition/Learning Last Updated: 16-Dec-2020 14:55 by Peg Sutherland (PCNA) Normal [facility] DIGITAL MAMM SCREENING W/ TO Arechiga 12-16-2020 DIGITAL MAMM SCREENING W/ SOL Patient Name: RONNELL HENRY STUDY: DIGITAL MAMM SCREENING W/ SOL; 12/16/2020 2:24 pm ACCESSION NUMBER(S): [id number] ORDERING CLINICIAN: JUVENAL FIGUEROA INDICATION: Screening. History of a right mastectomy. Family history of breast cancer with her paternal grandmother, mother, and paternal aunt diagnosed. COMPARISON: 12/04/2019, 11/21/2018, 10/04/2017, 09/30/2015 FINDINGS: 2D and tomosynthesis images were reviewed at 1 mm slice thickness. There are areas of scattered fibroglandular tissue. Routine and implant displaced views were performed. There is a prepectoral silicone implant. No suspicious masses or calcifications are identified. IMPRESSION: No mammographic evidence of malignancy. BI-RADS CATEGORY: Category: 2 - Benign. Recommendation: 1 Year Screening. For any future breast imaging appointments, please call [phone] ([phone]). Patient letter sent SNORM Electronically signed by: JUAN DANIEL BUCHANAN MD Normal [facility] Vital Signs Date Time Vital Sign Value Performing Clinician Christian delvalle 04-24-2023 15:00-0500 Body height 170.[address] Cailin Soto Work Phone: [facility] 04-24-2023 14:49-0500 Body mass index (BMI) [Ratio] 27.3 kg/m2 Dr. Cailin Soto Work Phone: [facility] 04-24-2023 14:49-0500 Body weight 79.[address] Cailin Soto Work Phone: [facility] 04-24-2023 14:49-0500 Diastolic blood pressure 72 mm[Hg] Dr. Cailin Soto Work Phone: [facility] 04-24-2023 14:49-0500 Systolic blood pressure 118 mm[Hg] Dr. Cailin Soto Work Phone: [facility] 03-29-2023 17:00-0400 Body temperature 97.3 [degF] Dr. Cailin Soto Work Phone: [facility] 03-29-2023 17:00-0400 Diastolic blood pressure 63 mm[Hg] Dr. Cailin Soto Work Phone: [facility] 03-29-2023 17:00-0400 Heart rate 78 /min Dr. Cailin Soto Work Phone: [facility] 03-29-2023 17:00-0400 Respiratory rate 16 /min Dr. Cailin Soto Work Phone: [facility] 03-29-2023 17:00-0400 SaO2% (BldA) [Mass fraction] 97 % Dr. Cailin Soto Work Phone: [facility] 03-29-2023 17:00-0400 Systolic blood pressure 104 mm[Hg] Dr. Cailin Soto Work Phone: [facility] 03-29-2023 14:49-0400 Body height 170.[address] Cailin Soto Work Phone: [facility] 03-29-2023 14:49-0400 Body mass index (BMI) [Ratio] 26.2 kg/m2 Dr. Cailin Soto Work Phone: [facility] 03-29-2023 14:49-04[address] Body weight [address] Cailin Soto Work Phone: [facility] Encounters Encounter Date Encounter Type Care Provider Facility Start: 04-14-2024 End: 04-14-2024 ambulatory Cailin Soto Facility:[facility] Start: 01-01-2024 End: 01-01-2024 ambulatory Cailin Soto Facility:[facility] Start: 12-03-2023 ambulatory Cailin Soto Facility:[facility] Start: 12-02-2023 End: 12-02-2023 ambulatory Cailin Soto Facility:[facility] Start: 04-24-2023 End: 04-24-[address] Cailin Soto Work Phone: [facility] Work Phone: Start: 04-24-2023 End: 04-24-[address] Cailin Soto Work Phone: [facility] Work Phone: Start: 03-29-2023 Non-patient / Non-visit Dr. Cailin Soto Work Phone: [facility] Start: 03-29-2023 End: 03-29-2023 Admission to same day surgery center Dr. Cailin Soto Work Phone: [facility] Work Phone: Start: 03-29-2023 End: 03-29-[address] Cailin Soto Work Phone: [facility] Work Phone: Start: 03-08-2023 End: 03-08-[address] Cailin Soto Work Phone: [facility] Work Phone: Start: 01-03-2023 End: 01-03-2023 ambulatory [facility] Work Phone: Start: 01-03-2023 End: 01-03-2023 Patient encounter procedure [facility] Work Phone: Start: 11-05-2022 End: 11-05-2022 ambulatory [facility] Work Phone: Start: 11-05-2022 End: 11-05-2022 Patient encounter procedure [facility] Start: 10-24-2022 End: 10-24-2022 Patient encounter procedure [facility], [facility] Start: 12-26-2021 End: 12-26-2021 Patient encounter procedure [facility] Procedures Date Procedure Procedure Detail Performing Clinician Start: 03-29-[address] Cailin zaragoza Work Phone: Start: 01-03-2023 Screening mammograph y of left breast Start: 10-24-2022 CT of abdomen and pe lvis without contrast Start: 12-26-2021 Screening mammograph y of left breast Plan of Treatment Date Care Activity Detail Author Start: 03-29-2023 Colonoscopy flx dx w/collj spec when pfrmd DIAGNOSTIC COLONOSCOPY [facility] Start: 03-29-2023 Patient discharge [facility] Patient referral [facility] Work Phone: Payers Date Payer Category Payer Private Health Insurance [id number] 2023 Private Health Insurance [id number] 2023 Self-pay [id number] 2023 Unknown [id number] 2011 Unknown [id number] Private Health Insurance [id number] Unknown [id number] 2.16.8 [id number] Unknown [id number] 2.16.8 [id number] Unknown [id number] 2.16.8 [id number] Unknown [id number] 2.16.8 [id number] Unknown [id number] 2.16.8 [id number] Social History Date Type Detail Facility Start: 07-14-2013 End: 04-24-2023 Tobacco smoking status NHIS Unknown if ever smoked [facility] Start: 1960 Sex Assigned At Female [facility] Goals Date Patient Goal Desired Activity /State Mental Status Date Assessment Result Facility 03-29-2023 Cognitive function Level Of Cons ciousness Appropriate;Lethargic [facility] Work Phone: 03-29-2023 Cognitive function Voice/Name [facility] Work Phone: Clinical Note 04-24-2023 Note Date & Type Note Facility 04-24-2023 Note [facility] Pap Smear Specimen Adequacy April 24, 2023 4:07pm Comment . Satisfactory for evaluation. Endocervical and/or squamous metaplasticcells (endocervical component) are present. Comment on above: Satisfactory for shannan luation. Endocervical and/or squamous metaplasticcells (endocervical component) are present. History and physical note 03-29-2023 Note Date & Type Note Facility 03-29-2023 History and physi domenic note Note Date/Time March 29, 2023 3:18pm [facility] Medical Records Department [address] [place] [address] History & Physical Exam 03/29/23 1518 MR#: [id number] Acct: [id number] Name: RONNELL HENRY Rep #:[id number] : 1960 62 From: Florentino Friend DO PCP: Dr. Cailin Soto, DO [place] [place]: [place] [address] History and Physical Date of Admission: 03/29/23 RONNELL HENRY, is a 62 F who presents to the office today for initial consult.PCP OV 10.24.22 with abdominal pain for a week. Last colonoscopy 10 years prior with reported normal results. Biochemical and imaging performed with concern fordiverticulitis and treated with Levaquin.?Biochemical ?CBC, CMP, LFT?CT abd/pel 10.24.22?multiple small gallstones; small hiatal hernia; diverticulosis with changes of acute sigmoid diverticulitis.? OV 03.08.23 Pt here needing repeat colonoscopy. Reports she has episodes of diverticulitis that happen 1-2 times a year. Most recently treated in September. Does not have any other GI concerns. ROS Const Constitutional: No fatigue ENT ENT: No difficulty swallowing Gastro GI: No abdominal pain, belching, bloating, change in bowel habits, change in stool character, coffee ground emesis, constipation, cramping, diarrhea, heartburn, difficulty swallowing, feeling full early, excessive flatus, incontinent of stools, Vomiting blood/hematemesis, Blood in stool, loose stools,Black,tarry stools, nausea/dyspepsia, pain with swallowing, vomiting or other Musc Musculoskeletal: No joint pain Skin Skin: No yellowing of the eye or itchy eyes Psych Psychiatric: No anxiety and No depression Endo Endocrine: No fatigue Aller/Imm Allergy/Immunologic: No itchy eyes Diogo/Lymp Hematologic/Lymphatic: No easy bleeding or easy bruising Exam Const General: cooperative and comfortable Nutritional Appearance: average body habitus and well nourished [facility] Head: normal to inspection Ears: hearing grossly normal bilaterally Nose: external nose normal Face and sinus: normal facial exam Mouth: oral mucosae normal Throat: posterior oropharynx normal Eyes General: appearance normal, both eyes and all related structures Neck Neck: normal visual inspection Chest Chest palpation & inspection: normal inspection of the chest and normal palpation of entire chest wall Resp Effort & Inspection: normal respiratory effort Auscultation: Bilateral: Clear to Auscultation Cardio Palpation: normal PMI Rate: regular rate Rhythm: regular rhythm GI Inspection: normal to inspection Auscultation: normal bowel sounds Percussion: normal to percussion Palpation: no hepatosplenomegaly Skin General: no rashes or lesions noted Neuro General: patient alert Extrem General: normal to inspection Psych Affect: normal affect Quality Reporting Tobacco Screening ([facility] 138) Smoking Status: Never smoker Assessment and Plan Assessment and Plan (1) Screening for colon cancer: Status: Acute Plan: 62-year-old with past medical history of diverticulitis who had a normal colonoscopy approximately 13 years ago. She does not have any abdominal pain atthis time. She does not have any nausea, vomiting or diarrhea. She did requireantibiotics for mild diverticulitis. She has no constipation or any sequela from her diverticular event. She will undergo screening colonoscopy because been 13 years since she had her last one. She was explained alternatives, risk,benefits including outstanding bleeding, infection, sepsis, perforation, need for emergent surgery and . She will have an ASA of 2. I have examined the patient and the H&P has been reviewed. There are no clinicalchanges since date of exam. 03/29/23 1518 <Electronically signed by Florentino Mayen DO> Cosigner Signature (if applicable): CC: Dr. Cailin Soto DO; Florentino Mayen DO~ Signed [facility] Work Phone: Procedure note 03-29-2023 Note Date & Type Note Facility 03-29-2023 Procedure note [facility] Procedure note 03-29-2023 Note Date & Type Note Facility 03-29-2023 Procedure note [facility] Evaluation note Note Date & Type Note Facility Evaluation note No assessment information availa ble [facility] Work Phone: Evaluation note Note Date & Type Note Facility Evaluation note Diagnosis Onset Date Screening for colon cancer a cute [facility] Work Phone: Evaluation note Note Date & Type Note Facility Evaluation note Diagnosis Onset Date Screening for colon cancer a cute History of right breast cancer acute Encounter for routine gyneco logical examination noneactive [facility] Work Phone: Summary Purpose Family History No Family History Records Found Relationship Condition Age at Onset Recorded Date/T ludy mother Malignant neoplasm of breast Unknown grandmother Malignant neoplasm of breast Unknown aunt Malignant neoplasm of breast Unknown father Malignant neoplasm Unknown Advance Directives No Advanced Directives Records Found Advance Directive Response Recorded Date/ Time Name of Medical Power of Diversified Crops Farmer - MIKA HENRY March 26, 2023 12:39pm Living Will Yes March 26 12:39pm Power of Diversified Crops Farmer Yes March 26, 2023 12:39pm Advance Directive Response Recorded Date/ Time Name of Medical Power of Diversified Cro[employer] Farmer - MIKA HENRY March 26, 2023 11:39am Living Will Yes March 26 11:39am Power of Diversified Crops Farmer Yes March 26, 2023 11:39am Chief Complaint and Reason for Visit Chief Complaint SCREENING Chief Complaint Generalized abdomina l pain Chief Complaint Generalized abdomina l pain SCREENING Chief Complaint SCREENING Consult Reason for Visit Screening for colon cancer Chief Complaint SCREENING Consult Annual ([employer]ECTIVE [employer] BUREAU) PAP Reason for Visit Screening for colon cancer History of right breast cancer Encounter for routine gynecological examination Additional Source Comments INFORMATION SOURCE (unrecogn ized section and content) DATE CREATED AUTHOR 08/31/2021 [facility] DATE CREATED AUTHOR AUTHOR'S ORGANIZ ATION 05/12/2024 [facility] Goals (unrecognized section and content) Goals may be documented in a n alternate sectionGoals may be documented in an alternate sectionGoals may be documented in an alternate section Care Teams (unrecognized sec tion and content) Team Status: Active Member Role Status Dates Dr. Cailin Soto DO Family Provider Active Dr. Cailin Soto DO Primary Care Provider Active Team Status: Inactive Member Role Status Dates Lety Dumont KAYAKING INSTRUCTOR, KAYAKING INSTRUCTOR-C Attending Provider, Referring Provi lenard Active Dr. Cailin Soto DO Primary Care Provider Active Team Status: Inactive Member Role Status Dates Dr. Cailin Soto DO Primary Care Provide r, Attending Provider, Referring Provider Active Team Status: Inactive Member Role Status Dates Dr. Cailin Soto DO Primary Care Provider, Referring P rovider Active Dr. Florentino Mayen , DO Attending Provider Active Team Status: Active Member Role Status Dates Dr. Cailin Soto DO Primary Care Provider, Referring P rovider Active Dr. Florentino Mayen , DO Attending Provider, Other Prov ider Active Team Status: Inactive Member Role Status Dates Dr. Cailin Soto DO Primary Care Provider, Referring P rovider Active Melyssa Gray KAYAKING INSTRUCTOR, KAYAKING INSTRUCTOR-C Attending Provider Active Team Status: Inactive Member Role Status Dates Dr. Cailin Soto , DO Primary Care Provider Active Melyssa Gray KAYAKING INSTRUCTOR, GUILLE-C Attending Provider, Referring Provider Active FOR RECORDS PERTAINING TO PATIENTS WHO ARE OR HAVE BEEN ENROLLED IN A CHEMICAL DEPENDENCY/SUBSTANCEABUSE PROGRAM, SOME INFORMATION MAY BE OMITTED. This clinical summary was aggregated from multiple sources. Caution should be exercised in using it in the provision of clinical care. This summary normalizes information from multiple sources, and as a consequence, information in this document may materially change the coding, format and clinical context of patient data. In addition, data may be omitted in some cases. CLINICAL DECISIONS SHOULD BE BASED ON THE PRIMARY CLINICAL RECORDS. [facility] [email or web address] provides no warranty or guarantee of the accuracy or completeness of information in this document.
== END 2024-10-31 23:59 | disposition home or self-care (01) ==
LOC: LABSPEC 12:04
PROVIDERS: PCP Family Medicine; Visit Provider Otolaryngology Otolaryngology/Facial Plastic Surgery
DX: K13.29 Other disturbances of oral epithelium, including tongue (principal)
CPT/HCPCS: 88305